=== PATIENT | female | born 1995 | race Two or more races ===

== ENCOUNTER 2018-01-26 22:04 | Emergency (ER) | payer MEDICAID ==
[~2018-01-26] VITALS: Ht 175.3 cm; Wt 81.6 kg
[2018-01-26] MEDS ORDERED: ETOMIDATE (2MG/ML) 20ML VIAL IV ONE ×2 (23:09→23:15)
[2018-01-26] MEDS ORDERED: ONDANSETRON HCL 4 MG/2 ML VIAL IV ONE (23:15)
[2018-01-26] MEDS ORDERED: MEPERIDINE HCL (25 MG/ML) 1ML VIAL IV ONE (23:15)
[2018-01-26 23:27] VITALS: BP 131/78
== END 2018-01-27 00:22 | disposition home or self-care (01) ==
LOC: EDBD 22:04 → ER 22:11
DX: S43.005A Unspecified dislocation of left shoulder joint, initial encounter (principal); X58.XXXA Exposure to other specified factors, initial encounter; Y93.89 Activity, other specified; Y99.8 Other external cause status; Y92.89 Other specified places as the place of occurrence of the external cause
CPT/HCPCS: 23650; 73020; 73030; 81025; 96374; 96375; 99152; 99285; J2175; J2405; J7030

== ENCOUNTER 2019-01-27 17:35 | Emergency (ER) | payer MEDICAID ==
[~2019-01-27] VITALS: Ht 160 cm; Wt 68.0 kg
[2019-01-27 17:40] VITALS: BP 119/71
== END 2019-01-27 22:35 | disposition left against medical advice (07) ==
LOC: ER 17:35
DX: M79.642 Pain in left hand (principal); Z53.21 Procedure and treatment not carried out due to patient leaving prior to being seen by health care provider
CPT/HCPCS: 73130